=== PATIENT | male | born 1980 | race Caucasian/White ===

== ENCOUNTER 2016-11-28 17:18 | Emergency (ER) | payer MEDICAID, OTHER ==
[~2016-11-28] VITALS: Wt 78.0 kg
[~2016-11-28 17:18] MED LIST: BACTDS PO; CEPH-443 PO; CEPH500C PO; IBUP-1542 PO
[2016-11-28] MEDS ORDERED: SOD CHLORIDE 0.9% 1,000 ML IV STA (20:13)
[2016-11-28] MEDS ORDERED: morphine 4 MG/ML VIAL IV STA (20:13)
[2016-11-28] MEDS ORDERED: ONDANSETRON 4 MG INJ IV STA ×2 (20:13→22:21)
--- NOTE | 2016-11-28 20:24 | ERD ---
ER Documentation Chief Complaint Date/Time DATE: 11/28/16 TIME: 20:16 Chief Complaint ap x2 week HPI 36-year-old otherwise healthy male presents To the emergency department for complaints of nonradiating, right lower quadrant abdominal pain which has gradually worsened over the past 2 weeks. He states he experienced the pain originally along bilateral lower abdomen but notes that it has since focused to the right lower quadrant. He notes associated fever and chills since today. Patient has attempted to treat his symptoms with Advil without relief.He denies nausea, vomiting, diarrhea, chest pain, shortness of breath, dysuria, hematuria. Patient denies any recent travel outside the country. His last bowel movement was earlier today and normal for him he denies any blood in the stool. ROS All systems reviewed and are negative except as per history of present illness. Medications Home Meds Active Scripts Naproxen* (Naprosyn*) 500 Mg Tablet, 500 MG PO BID Y for PAIN AND/OR INFLAMMATION, #30 TAB Prov:JARRED BEE PA-C 11/28/16 Acetaminophen with Codeine (Acetaminophen-Cod #3 Tablet) 1 Each Tablet, 1 TAB PO Q6H Y for PAIN, #20 TAB Prov:JARRED BEE PA-C 11/28/16 Ibuprofen* (Motrin*) 600 Mg Tab, 600 MG PO Q6, #20 TAB Prov:CAROLINE ROSE PA-C 10/10/15 Cephalexin* (Keflex*) 500 Mg Capsule, 500 MG PO QID for 7 Days, CAP Prov:CAROLINE ROSE PA-C 10/10/15 Sulfamethoxazole-Trimethoprim* (Bactrim* DS) 800-160 Mg Tab, 1 TAB PO BID for 7 Days, TAB Prov:ANAIS RAZO PA-C 09/10/15 Cephalexin* (Cephalexin*) 500 Mg Capsule, 500 MG PO Q6 for 10 Days, CAP Prov:ANAIS RAZOC 09/10/15 Allergies Allergies: Coded Allergies: No Known Allergy (Unverified , 09/20/15) PMhx/Soc Medical and Surgical Hx: pt denies Medical Hx, pt denies Surgical Hx History of Surgery: No Anesthesia Reaction: No Hx Neurological Disorder: No Hx Respiratory Disorders: No Hx Cardiac Disorders: No Hx Psychiatric Problems: No Hx Miscellaneous Medical Probl: No Hx Alcohol Use: Yes (socially) Hx Substance Use: No Hx Tobacco Use: No Physical Exam Vitals Vital Signs Date Time Temp Pulse Resp B/P Pulse Ox O2 Delivery O2 Flow Rate FiO2 11/28/16 23:01 98.5 76 18 118/70 98 Room Air 11/28/16 17:27 100.6 97 18 143/79 99 Physical Exam Const: Well-developed, well-nourished, in moderate distress Head: Atraumatic Eyes: Normal Conjunctiva Neck: Full range of motion..~ No meningismus. Resp: Clear to auscultation bilaterally Cardio: Regular rate and rhythm, no murmurs Abd: Soft, Right lower quadrant tenderness to palpation. Positive rebound tenderness. No peritoneal sign. Skin: No petechiae or rashes Back: No midline or flank tenderness Ext: No cyanosis, or edema Neur: Awake and alert Psych: Normal Mood and Affect Result Diagram: 11/28/16203911/28/162039 Results 24 hrs Laboratory Tests Test 11/28/16 20:40 11/28/16 20:45 White Blood Count 7.310^3/ul Red Blood Count 5.0310^6/ul Hemoglobin 15.1g/dl Hematocrit 42.2% Mean Corpuscular Volume 83.9fl Mean Corpuscular Hemoglobin 30.0pg Mean Corpuscular Hemoglobin Concent 35.8g/dl Red Cell Distribution Width 11.7% Platelet Count 34164^3/UL Mean Platelet Volume 9.2fl Neutrophils % 78.2% Lymphocytes % 13.1% Monocytes % 7.8% Eosinophils % 0.1% Basophils % 0.3% Nucleated Red Blood Cells % 0.0/100WBC Neutrophils # (Manual) 5.710^3/ul Lymphocytes # 1.010^3/ul Monocytes # 0.610^3/ul Eosinophils # 0.010^3/ul Basophils # 0.010^3/ul Nucleated Red Blood Cells # 0.010^3/ul Prothrombin Time 12.9Sec Prothrombin Time Ratio 1.0 INR International Normalized Ratio 0.97 Activated Partial Thromboplast Time 29.4Sec Sodium Level 138mmol/L Potassium Level 3.9mmol/L Chloride Level 100mmol/L Carbon Dioxide Level 26mmol/L Anion Gap 16 Blood Urea Nitrogen 12mg/dl Creatinine 0.89mg/dl Glucose Level 98mg/dl Lactic Acid Level 1.1mmol/L Calcium Level 9.7mg/dl Total Bilirubin 1.1mg/dl Direct Bilirubin 0.00mg/dl Indirect Bilirubin 1.1mg/dl Aspartate Amino Transf (AST/SGOT) 24IU/L Alanine Aminotransferase (ALT/SGPT) 37IU/L Alkaline Phosphatase 60IU/L Total Protein 8.9g/dl Albumin 4.9g/dl Globulin 4.00g/dl Albumin/Globulin Ratio 1.22 Lipase 62U/L Urine Color YELLOW Urine Clarity CLEAR Urine pH 5.0 Urine Specific [place] 1.018 Urine Ketones NEGATIVEmg/dL Urine Nitrite NEGATIVEmg/dL Urine Bilirubin NEGATIVEmg/dL Urine Urobilinogen NEGATIVEmg/dL Urine Leukocyte Esterase NEGATIVELeu/ul Urine Microscopic RBC 5/HPF Urine Microscopic WBC 0/HPF Urine Hemoglobin 2+mg/dL Urine Glucose NEGATIVEmg/dL Urine Total Protein NEGATIVEmg/dl Current Medications Medications (Trade) Dose Ordered Sig/Elizabeth Route PRN Reason Start Time Stop Time Status Last Admin Dose Admin Sodium Chloride (NS) 1,000 ml @ 1,000 mls/hr Q1H STAT IV 11/28/16 20:13 11/28/16 21:12 DC 11/28/16 20:30 Morphine Sulfate (morphine) 4 mg ONCE STAT IV 11/28/16 20:13 11/28/16 20:15 DC 11/28/16 20:30 Ondansetron HCl (Zofran Inj) 4 mg ONCE STAT IV 11/28/16 20:13 11/28/16 20:15 DC 11/28/16 20:29 Acetaminophen (Tylenol Tab) 650 mg ONCE ONCE PO 11/28/16 20:30 11/28/16 20:31 DC 11/28/16 20:34 IV Flush 10 ml 10 ml STK-MED ONCE .ROUTE 11/28/16 21:13 11/28/16 21:14 DC 11/28/16 21:48 Sodium Chloride (NS) 100 ml @ ud STK-MED ONCE .ROUTE 11/28/16 21:13 11/28/16 21:14 DC 11/28/16 21:49 Iohexol (Omnipaque 300mg/ ml) 150 ml STK-MED ONCE .ROUTE 11/28/16 21:13 11/28/16 21:14 DC 11/28/16 21:49 Ketorolac Tromethamine (Toradol) 30 mg ONCE STAT IV 11/28/16 22:21 11/28/16 22:22 DC 11/28/16 22:34 Ondansetron HCl (Zofran Inj) 4 mg ONCE STAT IV 11/28/16 22:21 11/28/16 22:22 DC 11/28/16 22:34 Procedures/MDM PROCEDURE: CT Abdomen and Pelvis with contrast. CLINICAL INDICATION: Right lower abdominal pain. TECHNIQUE: CT scan of the abdomen and pelvis with contrast was performed on a multi-detector high-resolution CT scanner. The patient was scanned following the uncomplicated intravenous administration of 90 cc of Omnipaque 300. Coronal and sagittal reformatted images were obtained from the axial source images. One or more of the following dose reduction techniques were used: Automated exposure control, adjustment of the mA and/or kV according to patient size, use of iterative reconstruction technique. Images were reviewed on a high -resolution PACS workstation. The total exam CTDI equals 10.57 mGy and the total exam DLP equals 674.74 mGy-cm. COMPARISON: None available. FINDINGS: CT abdomen: Minimal bilateral lower lobe dependent atelectatic changes are present. Otherwise, the lung bases are clear. The heart size is normal, without pericardial thickening or effusion. There is mild distension of the distal esophagus which is gas filled. The liver is normal in size and density without focal mass or intrahepatic biliary dilatation. The spleen is borderline prominent measuring 13.4 cm. The stomach is partially collapsed, but is grossly unremarkable. The pancreas as visualized is normal. The gallbladder is unremarkable. The biliary tree is unremarkable without evidence for biliary dilatation. The adrenal glands are symmetric and normal. The kidneys are unremarkable. No renal calculus or obstructive uropathy or mass lesion is seen. The aorta is of normal caliber. There is no retroperitoneal lymphadenopathy. The francisco hepatis region is clear. The small bowel and mesentery, as visualized , are unremarkable. CT pelvis: The small bowel loops situated within the pelvis are unremarkable. The pelvic organs are normal. The pelvic sidewalls and inguinal regions are clear. The sigmoid colon and rectum are unremarkable. The appendix is not seen. No right lower quadrant inflammatory changes are seen to suggest appendicitis. No mass, lymphadenopathy, or free fluid is seen. The bladder is normal. There is a small fat-containing right inguinal hernia. The surrounding osseous structures are unremarkable. No osteolytic or osteoblastic lesion is detected. IMPRESSION: 1. No mass, lymphadenopathy, or focal acute inflammatory process is identified. 2. Borderline prominent splenic size. RPTAT: QQ .Arnoldo Howe MD, Date Time Electronically viewed and signed by .Arnoldo Howe MD, MD on 11/28/2016 22:04 .A/ CC: JARRED BEE PA-C This is an otherwise healthy 36-year-old male who presents emergency department for gradually worsening abdominal pain with associated fever and chills. Upon arrival, patient febrile at 100.6. Otherwise vital signs within normal limits. Physical exam with evidence of right lower quadrant tenderness to palpation. CBC showed no evidence of systemic infection or severe anemia. CMP showed no evidence of electrolyte abnormalities, severe acidosis, alkalosis , renal failure, or liver disease. Lipase showed no evidence of acute pancreatitis. UA showed no evidence of acute infection. Patient exhibited 2+ hematuria. His fever was well controlled with [address] with evidence of borderline prominent spleen. On physical exam, patient did not exhibit splenomegaly and was nontender to the left upper quadrant. There are no other acute findings. History and physical exam consistent with abdominal pain of unknown etiology. Differential diagnosis includes but not limited to acute appendicitis, abdominal aortic aneurysm, small bowel obstruction, inguinal hernia, testicular torsion, gastroenteritis, colitis, prostatitis, or renal calculi. Labs and imaging however did not demonstrate any significant acute process. Patient received a bolus of fluids as well as pain medication while in the emergency department and reported improvement of symptoms. Based on patient's history of present illness and physical examination the decision was made to discharge. The patient was re-evaluated after ED treatment and stabilizing measures, and symptoms have improved. There is no evidence of life threatening injuries or illnesses at this time. On re-examination, patient resting in no distress, stable vital signs, reports feeling better and safe for discharge with outpatient follow up with PMD in 1-2 days. Patient given return precautions. Community clinic resources were provided. Patient expressed understanding of and agreement with plan. Departure Diagnosis: Primary Impression: Abdominal pain Abdominal location: generalized Qualified Code: R10.84 - Generalized abdominal pain Additional Impression: Fever Fever type: unspecified Qualified Code: R50.9 - Fever, unspecified fever cause JARRED BEE PA-C Nov 28, 2016 20:24
[2016-11-28] MEDS ORDERED: ACETAMINOPHEN 325 MG TAB PO ONE (20:30)
[2016-11-28 20:58] LABS: BASOPHILS % 0.3 % (0.0-2.0); EOSINOPHILS % 0.1 % (0.0-7.0); HEMATOCRIT 42.2 % (42.0-52.0); HEMOGLOBIN 15.1 g/dl (14.0-18.0); LYMPHOCYTES % 13.1 % (15.0-51.0); MEAN CORPUSCULAR HGB CONC 35.8 g/dl (32.0-37.0); MEAN CORPUSCULAR VOLUME 83.9 fl (82.0-101.0); MEAN PLATELET VOLUME 9.2 fl (7.4-10.4); MONOCYTE # 0.6 10^3/ul (0.3-0.9); MONOCYTES % 7.8 % (0.0-11.0); NEUTROPHILS % 78.2 % (39.0-77.0); PLATELET COUNT 237 10^3/UL (140-415); RED BLOOD COUNT 5.03 10^6/ul (4.70-6.10); RED CELL DISTRIBUTION WIDTH 11.7 % (11.5-14.5); WHITE BLOOD COUNT 7.3 10^3/ul (4.8-10.8)
[2016-11-28] MEDS ORDERED: SOD CHLORIDE 0.9% 100 ML ONE (21:13)
[2016-11-28] MEDS ORDERED: IOHEXOL 300MG/ML 150 ML BTL ONE (21:13)
[2016-11-28 21:18] LABS: INR 0.97; PROTIME 12.9 Sec (12.2-14.2)
[2016-11-28 21:19] LABS: PARTIAL THROMBOPLASTIN TIME 29.4 Sec (25.0-35.0)
[2016-11-28 21:22] LABS: ADD UMIC YES; UR ASCORBIC ACID NEGATIVE (NEGATIVE); UR BILIRUBIN (Dip) NEGATIVE (NEGATIVE); UR BLOOD (Dip) 2+ mg/dL (NEGATIVE); UR CLARITY CLEAR (CLEAR); UR COLOR YELLOW (YELLOW); UR GLUCOSE (Dip) NEGATIVE (NEGATIVE); UR KETONES (Dip) NEGATIVE (NEGATIVE); UR LEUKOCYTE ESTERASE (Dip) NEGATIVE Leu/ul (NEGATIVE); UR NITRITE (Dip) NEGATIVE (NEGATIVE); UR RBC 5 /HPF (0-5); UR SPECIFIC GRAVITY (Dip) 1.018 (1.003-1.030); UR TOTAL PROTEIN (Dip) NEGATIVE (NEGATIVE); UR UROBILINOGEN (Dip) NEGATIVE (NEGATIVE)
[2016-11-28 21:23] LABS: ALBUMIN 4.9 g/dl (3.3-4.9); ALBUMIN/GLOBULIN RATIO 1.22; BILIRUBIN,INDIRECT 1.1 mg/dl (0-1.1); BILIRUBIN,TOTAL 1.1 mg/dl (0.2-1.3); CALCIUM 9.7 mg/dl (8.4-10.2); CREATININE 0.89 mg/dl (0.61-1.24); POTASSIUM 3.9 mmol/L (3.5-5.1); TOTAL PROTEIN 8.9 g/dl (6.1-8.1)
--- NOTE | 2016-11-28 22:05 | RADRPT ---
PROCEDURE: CT Abdomen and Pelvis with contrast. CLINICAL INDICATION: Right lower abdominal pain. TECHNIQUE: CT scan of the abdomen and pelvis with contrast was performed on a multi-detector high- resolution CT scanner. The patient was scanned following the uncomplicated intravenous administrati on of 90 cc of Omnipaque 300. Coronal and sagittal reformatted images were obtained from the axial source images. One or more of the following dose reduction techniques were used: Automated exposure control, adjustment of the mA and/or kV according to patient size, use of iterative reconstruction technique. Images were reviewed on a high-resolution PACS workstation. The total exam CTDI equals 10.57 mGy and the total exam DLP equals 674.74 mGy-cm. COMPARISON: None available. FINDINGS: CT abdomen: Minimal bilateral lower lobe dependent atelectatic changes are present. Otherwise, the lung bases are clear. The heart size is normal, without pericardial thickening or effusion. There is mild dis tension of the distal esophagus which is gas filled. The liver is normal in size and density without focal mass or intrahepatic biliary dilatation. The spleen is borderline prominent measuring 13.4 cm. The stomach is partially collapsed, but is grossly unremarkable. The pancreas as visualized is normal. The gallbladder is unremarkable. The biliary tree is unremarkable without evidence for biliary dilatation. The adrenal glands are symmetric and normal. The kidneys are unremarkable. No renal calculus or obstructive uropathy or mass lesion is seen. The aorta is of normal caliber. There is no retroperitoneal lymphadenopathy. The francisco hepatis re gion is clear. The small bowel and mesentery, as visualized, are unremarkable. CT pelvis: The small bowel loops situated within the pelvis are unremarkable. The pelvic organs are normal. T he pelvic sidewalls and inguinal regions are clear. The sigmoid colon and rectum are unremarkable. The appendix is not seen. No right lower quadrant inflammatory changes are seen to suggest appendici tis. No mass, lymphadenopathy, or free fluid is seen. The bladder is normal. There is a small fat-c ontaining right inguinal hernia. The surrounding osseous structures are unremarkable. No osteolytic or osteoblastic lesion is detect ed. IMPRESSION: 1. No mass, lymphadenopathy, or focal acute inflammatory process is identified. 2. Borderline prominent splenic size. RPTAT: QQ .Arnoldo Howe MD, MD Date Time Electronically viewed and signed by .Arnoldo Howe MD, on 11/28/2016 22:04 .A/
[2016-11-28] MEDS ORDERED: KETOROLAC 30 MG INJ IV STA (22:21)
[2016-11-28] MEDS ORDERED: ACET1TAB40 PO (22:29)
[2016-11-28] MEDS ORDERED: NAPR-260 PO (22:29)
[2016-11-28 23:01] VITALS: BP 118/70; PULSE 76; RESP 18; TEMP 98.5
== END 2016-11-28 23:03 | disposition home or self-care (01) ==
LOC: FTE 17:18
DX: R10.84 Generalized abdominal pain (principal); R50.9 Fever, unspecified
CPT/HCPCS: 36415; 74177; 80053; 81001; 83605; 83690; 85025; 85610; 85730; 96374; 96375; 96376; J1885; J2270; J2405; J7030; Q9967; Z7502; Z7610

== ENCOUNTER 2018-09-18 19:48 | Inpatient (IN) | payer MEDICAID ==
[~2018-09-18] VITALS: Ht 170.2 cm; Wt 88.0 kg
[~2018-09-18 19:48] MED LIST changes: +ACET1TAB40 PO; +NAPR-985 PO
[2018-09-18 19:57] VITALS: Ht 170.2 cm; Wt 88.0 kg
[2018-09-18] MEDS ORDERED: CEFEPIME 2GM/50 ML (PMX) 50 ML IVPB STA (20:17)
[2018-09-18] MEDS ORDERED: SODIUM CHLORIDE 0.9% 1L BAG IV* STA (20:17)
[2018-09-18] MEDS ORDERED: ACETAMINOPHEN 325 MG TAB PO STA (20:17)
[2018-09-18] MEDS ORDERED: ASPIRIN 325 MG TAB PO ONE (20:30)
[2018-09-18] MEDS ORDERED: VANCOMYCIN 1 GM (PMX) 250 ML IVPB ONE (20:30)
[2018-09-18] MEDS ORDERED: SOD CHLORIDE 0.9% 100 ML ONE (21:35)
[2018-09-18] MEDS ORDERED: IOHEXOL 300MG/ML 150 ML BTL ONE (21:35)
--- NOTE | 2018-09-18 21:54 | ERD ---
ER Documentation Chief Complaint Chief Complaint low back pain x 1week, no trauma, feels tired HPI 38-year-old male with no significant prior medical history presents to the ED complaining of fever and low back pain. He was in his usual state of health until 3 weeks ago when he developed nonspecific URI and flu symptoms with fevers that lasted approximately a week and then resolved. One week ago again began to have fevers and body aches with crampy, nonradiating low back pain. Pain is moderate, crampy, nonradiating and exacerbated by movement. No relieving factors.No abdominal pain, nausea, vomiting, diarrhea or constipation. Denies cough or shortness of breath. No chest pain or palpitations. No dysuria, polyuria, hematuria or flank pain. ROS All systems reviewed and are negative except as per history of present illness. Medications Home Meds Active Scripts [Medical Note] No Conflict Check Mr.Christian Conway was hospitalized due to his medical illness. Please excuse him attending work from 09/18/2018 to 09/22/2018. Prov:GAMALIEL LOGAN NP 09/22/18 Amoxicillin/Potassium Clav (Amox-Clav 875-125 mg Tablet) 875-125 mg Tab, 1 TAB PO BID for 10 Days, #20 TAB Prov:GAMLAIEL LOGAN NP 09/22/18 Azithromycin* (Azithromycin*) 500 Mg Tablet, 500 MG PO DAILY for 3 Days, #3 TAB Prov:GAMALIEL LOGAN NP 09/22/18 Discontinued Scripts Ibuprofen* (Motrin*) 600 Mg Tab, 600 MG PO Q6, #20 TAB Prov:CAROLINE ROSE PA-C 10/10/15 Naproxen* (Naprosyn*) 500 Mg Tablet, 500 MG PO BID PRN for PAIN AND/OR INFLAMMATION, #30 TAB Prov:JARRED BEE PA-C 11/28/16 Acetaminophen with Codeine (Acetaminophen-Cod #3 Tablet) 1 Each Tablet, 1 TAB PO Q6H PRN for PAIN, #20 TAB Prov:JARRED BEEC 11/28/16 Cephalexin* (Keflex*) 500 Mg Capsule, 500 MG PO QID for 7 Days, CAP Prov:CAROLINE ROSEC 10/10/15 Sulfamethoxazole-Trimethoprim* (Bactrim* DS) 800-160 Mg Tab, 1 TAB PO BID for 7 Days, TAB Prov:ANAIS RAZO PA-C 09/10/15 Cephalexin* (Cephalexin*) 500 Mg Capsule, 500 MG PO Q6 for 10 Days, CAP Prov:ANAIS RAZO PA-C 09/10/15 Allergies Allergies: Coded Allergies: No Known Allergy (Unverified , 09/18/18) PMhx/Soc Reviewed History of Surgery: No Anesthesia Reaction: No Hx Neurological Disorder: No Hx Respiratory Disorders: No Hx Cardiac Disorders: No Hx Psychiatric Problems: No Hx Miscellaneous Medical Probl: No Hx Alcohol Use: Yes (socially) Hx Substance Use: No Hx Tobacco Use: No Smoking Status: Never smoker FmHx No diabetes, coronary artery disease or stroke Physical Exam Vitals Temp: 102.2. Pulse: 105. Respirations: 18. Pressure: 133/80. O2 saturation 99% on room air. Physical Exam Const: Alert, moderate distress Head: Atraumatic Eyes: Pupils equal reactive to light, extraocular movements are intact. No periorbital swelling. Pharynx is clear without erythema or exudate. Normal Conjunctiva ENT: Normal External Ears, Nose and Mouth. Neck: Full range of motion. Supple, nontender. No meningismus. No lymphadenopathy. Resp: Breath sounds are equal and clear to auscultation bilaterally Cardio: Tachycardia. Regular rate and rhythm, no murmurs Abd: Soft, mild, generalized tenderness which localizes to the upper abdomen but no rebound or guarding. Non distended. Normal bowel sounds Skin: No petechiae or rashes Back: No midline bony tenderness to palpation or percussion. Negative straight leg raise and cross leg raise. Dorsiflexion of the great toe is normal bilaterally. No pTreatment araspinal muscle spasm. No CVA tenderness. Ext: No cyanosis, or edema Neur: Awake and alert. No focal deficit. Motor and sensory equal bilaterally. Psych: Normal Mood and Affect Result Diagram: 09/22/1860409/22/18604 Results 24 hrs Laboratory Tests Test 09/18/18 20:16 09/18/18 20:20 POC Venous Lactate 1.2 mmol/L White Blood Count 8.6 10^3/ul Red Blood Count 4.91 10^6/ul Hemoglobin 14.2 g/dl Hematocrit 41.5 % Mean Corpuscular Volume 84.5 fl Mean Corpuscular Hemoglobin 28.9 pg Mean Corpuscular Hemoglobin Concent 34.2 g/dl Red Cell Distribution Width 11.7 % Platelet Count 256 10^3/UL Mean Platelet Volume 9.2 fl Immature Granulocytes % 0.400 % Neutrophils % 69.5 % Lymphocytes % 19.9 % Monocytes % 9.3 % Eosinophils % 0.7 % Basophils % 0.2 % Nucleated Red Blood Cells % 0.0 /100WBC Immature Granulocytes # 0.030 10^3/ul Neutrophils # 6.0 10^3/ul Lymphocytes # 1.7 10^3/ul Monocytes # 0.8 10^3/ul Eosinophils # 0.1 10^3/ul Basophils # 0.0 10^3/ul Nucleated Red Blood Cells # 0.0 10^3/ul Erythrocyte Sedimentation Rate 25 mm/Hr Prothrombin Time 13.6 Sec Prothrombin Time Ratio 1.1 INR International Normalized Ratio 1.03 Activated Partial Thromboplast Time 32.0 Sec Urine Color STRAW Urine Clarity CLEAR Urine pH 7.0 Urine Specific [place] 1.006 Urine Ketones NEGATIVE mg/dL Urine Nitrite NEGATIVE mg/dL Urine Bilirubin NEGATIVE mg/dL Urine Urobilinogen NEGATIVE mg/dL Urine Leukocyte Esterase NEGATIVE Hemanth/ul Urine Microscopic RBC 7 /HPF Urine Microscopic WBC 0 /HPF Urine Hemoglobin 2+ mg/dL Urine Glucose NEGATIVE mg/dL Urine Total Protein NEGATIVE mg/dl Sodium Level 139 mmol/L Potassium Level 4.0 mmol/L Chloride Level 101 mmol/L Carbon Dioxide Level 28 mmol/L Anion Gap 10 Blood Urea Nitrogen 12 mg/dl Creatinine 0.95 mg/dl Est Glomerular Filtrat Rate mL/min > 60 mL/min Glucose Level 99 mg/dl Calcium Level 9.4 mg/dl Total Bilirubin 1.2 mg/dl Direct Bilirubin 0.00 mg/dl Indirect Bilirubin 1.2 mg/dl Aspartate Amino Transf (AST/SGOT) 20 IU/L Alanine Aminotransferase (ALT/SGPT) 15 IU/L Alkaline Phosphatase 65 IU/L Creatine Kinase 81 IU/L Creatine Kinase Index 0.3 Creatinine Kinase MB (Mass) < 0.22 ng/ml Troponin I ng/ml C-Reactive Protein 4.1 mg/dl Total Protein 8.8 g/dl Albumin 4.7 g/dl Globulin 4.10 g/dl Albumin/Globulin Ratio 1.14 Current Medications Medications Dose Sig/Elizabeth Start Time Status Last (Trade) Ordered Route PRN Stop Time Admin Dose Reason Admin Sodium 2,640 ml BOLUS OVER 2 09/18/18 DC 09/18/18 Chloride HOURS STAT 20:17 20:28 (NS) IV* 09/18/18 20:18 650 mg ONCE STAT 09/18/18 DC 09/18/18 Acetaminophen PO 20:17 20:28 (Tylenol 09/18/18 20:18 Tab) Cefepime HCl 50 ml @ ONCE STAT 09/18/18 DC 09/18/18 100 mls/hr IVPB 20:17 20:29 09/18/18 20:46 Vancomycin 250 ml @ ONCE ONCE 09/18/18 DC 09/18/18 HCl 125 mls/hr IVPB 20:30 20:59 09/18/18 23:19 Aspirin 325 mg ONCE ONCE 09/18/18 DC 09/18/18 (Aspirin) PO 20:30 20:45 09/18/18 20:31 IV Flush 10 ml STK-MED 09/18/18 DC 09/18/18 (NS 10 ml) ONCE .ROUTE 21:35 22:09 09/18/18 21:36 Sodium 100 ml @ ud STK-MED 09/18/18 DC 09/18/18 Chloride ONCE .ROUTE 21:35 22:10 09/18/18 21:36 Iohexol 150 ml STK-MED 09/18/18 DC 09/18/18 (Omnipaque ONCE .ROUTE 21:35 22:10 300mg/ ml) 09/18/18 21:36 Procedures/MDM DOCUMENTS REVIEWED: ED nurse, prior records EKG: Time: 20:14. Sinus tachycardia. Ventricular rate 102. Normal AL and QRS. Q waves in leads II, III and aVF. ST segment elevations in aVL and V2. No ST segment or AL depressions. No ectopy. My Interpretation EKG: Time: 20:38. Sinus rhythm. Ventricular rate 89. Normal AL and QRS. Q waves in the inferior leads with ST segment elevations in aVL and V2 unchanged. No ectopy. My Interpretation IMAGING: Chest AP portable. Cardiac silhouette is normal. The costophrenic angles are clear. No effusions or infiltrates. No abnormalities of the bony thorax. My interpretation. PROCEDURE: CT Abdomen and Pelvis With Intravenous Contrast CLINICAL INDICATION: Fever. Hematuria. TECHNIQUE: Axial computed tomography images of the abdomen and pelvis with intravenous contrast. Sagittal and coronal reformatted images were created and reviewed. CTDIvol (mGy) = 01/21; total DLP (mGy-cm) = 716.48. This CT exam was performed using one or more of the following dose reduction techniques: automated exposure control, adjustment of the mA and/or kV according to patient size, and/or use of iterative reconstruction technique. DICOM images are available. CONTRAST: 90 mL of Omnipaque-300 was administered intravenously. COMPARISON: 11/28/2016 FINDINGS: LUNG BASES: Right lower lobe infiltrate, highly suggestive of pneumonia. ABDOMEN: LIVER: Unremarkable. No mass. GALLBLADDER AND BILE DUCTS: The gallbladder is contracted. No calcified gallstones are demonstrated. No biliary dilatation. PANCREAS: Unremarkable. No mass. No ductal dilation. SPLEEN: Unremarkable. No splenomegaly. ADRENALS: Unremarkable. No mass. KIDNEYS AND URETERS: The kidneys are morphologically normal. No nephrolithiasis. No hydronephrosis. No obstructive uropathy. STOMACH AND BOWEL: Unremarkable. No obstruction. No mucosal thickening. PELVIS: APPENDIX: No findings to suggest acute appendicitis. BLADDER: Unremarkable. No mass. REPRODUCTIVE: Unremarkable as visualized. ABDOMEN and PELVIS: INTRAPERITONEAL SPACE: Unremarkable. No free air. No significant fluid collection. BONES/JOINTS: No acute fracture. No dislocation. SOFT TISSUES: Unremarkable. VASCULATURE: Unremarkable. LYMPH NODES: Unremarkable. No enlarged lymph nodes. IMPRESSION: 1. Right lower lobe infiltrate, highly suggestive of pneumonia. 2. No acute abnormality demonstrated in the abdomen and pelvis. RPTAT: [facility] Edward Ramos Physician Date Time Electronically viewed and signed by Edward Ramos Physician on 09/18/2018 22:31 [facility] [place] [employer]-year-old male with no significant prior medical history presents to the ED complaining of fever and low back pain. CBC to evaluate for leukocytosis, anemia and thrombocytopenia is unremarkable. Chemistry is negative for hyperglycemia, electrolyte abnormalities or renal insufficiency. Urinalysis significant for mild microscopic hematuria but no pyuria. Chest x-ray negative for infiltrate or effusion. EKG x2 remarkable for ST-T wave changes as described above but not consistent STEMI or acute ischemia. Troponin is negative. No chest pain or acute coronary syndrome. CT scan of the abdomen pelvis with intravenous contrast significant for findings consistent with right lower lobe pneumonia but no acute intra-abdominal process including but not limited to appendicitis, diverticulitis, bowel obstruction, abdominal aortic aneurysm or bowel obstruction. Patient presents with multiple criteria for systemic inflammatory response syndrome. [id number] lactate is 1.2 mmol/L. Fever treated with acetaminophen. Normal saline 30 cc/kg fluid bolus and broad-spectrum antibiotics after cultures. No elevated lactate greater than 2, hypotension or criteria for severe sepsis, septic shock or indication for bundle therapy. Admit to telemetry for infectious source control, cardiology consultation, further evaluation and management. Critical Care Time: 35 minutes Treatments/Evaluations: Close monitoring and treatment of unstable vital signs, cardiorespiratory, and neurologic status, while maintaining tight balance of fluid, respiratory, and cardiac interventions. This time includes discussing the case with the patient and the patient's family. This time does not include all procedures stated elsewhere in this record. This time also includes reviewing old records, labs and radiological studies. This time includes examining and re- examining the patient. Additionally, this time also includes arranging care with admitting and consulting physicians. CALLS/CONSULTS: Time: 20:45, Dr. Ibarra. Recommends admission for further evaluation. PATIENT CARE TRANSITIONED: Time: 23:11, Dr. Vargas. Counseled patient regarding diagnosis, diagnostic results and plan for admission. Departure Diagnosis: Primary Impression: Sepsis Sepsis type: sepsis due to unspecified organism Qualified Codes: A41.9 - Sepsis, unspecified organism Additional Impressions: Pneumonia Pneumonia type: due to unspecified organism Laterality: right Lung location: lower lobe of lung Qualified Codes: J18.1 - Lobar pneumonia, unspecified organism SIRS (systemic inflammatory response syndrome) Abnormal ECG Condition: Serious KENIA ANAYA MD Sep 18, 2018 21:54
--- NOTE | 2018-09-18 23:15 | HP ---
Date/Time of Note Date/Time of Note DATE: 09/18/18 TIME: 23:14 Assessment/Plan VTE Prophylaxis SCD applied (from Nsg): Yes Pharmacological prophylaxis: NA/contraindicated Pharm contraindication: low risk/ambulating Lines/Catheters IV Catheter Type (from Nrsg): Saline Lock Assessment/Plan Hospital Course This is a 38-year-old male being admitted to the telemetry floor for: #1 sepsis: Secondary to community-acquired pneumonia. Patient received vancomycin and cefepime in the emergency department. We will start the patient on Zosyn 3.375 every 6 hours. Will await culture results. Lactic acid within n ormal values. Tylenol for fevers. #2 community acquired pneumonia: Zosyn, PRN nebs as needed #3 abnormal EKG:EKG:Sinus rhythm. Ventricular rate 89. Normal PA and QRS. Q waves in the inferior leads with ST segment elevations in aVL and V2 unchanged. The EKG also read acute SC. The overnight helicopter dispatcher was consulted as per the ED physician. This was not thought to be a true SC. Patient did not complain of chest pain. His initial troponin was negative. Will trend cardiac enzymes. We will monitor on telemetry. Will check an echocardiogram. Will consult cardiology in the a.m. #4 obesity: We will check hemoglobin A 1C, lipid panel, TSH #5 DVT GI prophylaxis: SCDs, no GI prophylaxis indicated Further treatment strategy will be implemented as per the clinical course. Result Diagram: 09/18/18201909/18/182019 Results 24hrs Laboratory Tests Test 09/18/18 20:16 09/18/18 20:20 POC Venous Lactate 1.2 White Blood Count 8.6 Red Blood Count 4.91 Hemoglobin 14.2 Hematocrit 41.5 L Mean Corpuscular Volume 84.5 Mean Corpuscular Hemoglobin 28.9 L Mean Corpuscular Hemoglobin Concent 34.2 Red Cell Distribution Width 11.7 Platelet Count 256 Mean Platelet Volume 9.2 Immature Granulocytes % 0.400 Neutrophils % 69.5 Lymphocytes % 19.9 Monocytes % 9.3 Eosinophils % 0.7 Basophils % 0.2 Nucleated Red Blood Cells % 0.0 Immature Granulocytes # 0.030 Neutrophils # 6.0 Lymphocytes # 1.7 Monocytes # 0.8 Eosinophils # 0.1 Basophils # 0.0 Nucleated Red Blood Cells # 0.0 Erythrocyte Sedimentation Rate 25 H Prothrombin Time 13.6 Prothrombin Time Ratio 1.1 INR International Normalized Ratio 1.03 Activated Partial Thromboplast Time 32.0 Urine Color STRAW Urine Clarity CLEAR Urine pH 7.0 Urine Specific [place] 1.006 Urine Ketones NEGATIVE Urine Nitrite NEGATIVE Urine Bilirubin NEGATIVE Urine Urobilinogen NEGATIVE Urine Leukocyte Esterase NEGATIVE Urine Microscopic RBC 7 H Urine Microscopic WBC 0 Urine Hemoglobin 2+ H Urine Glucose NEGATIVE Urine Total Protein NEGATIVE Sodium Level 139 Potassium Level 4.0 Chloride Level 101 Carbon Dioxide Level 28 Anion Gap 10 Blood Urea Nitrogen 12 Creatinine 0.95 Est Glomerular Filtrat Rate mL/min > 60 Glucose Level 99 Calcium Level 9.4 Total Bilirubin 1.2 Direct Bilirubin 0.00 Indirect Bilirubin 1.2 H Aspartate Amino Transf (AST/SGOT) 20 Alanine Aminotransferase (ALT/SGPT) 15 Alkaline Phosphatase 65 Creatine Kinase 81 Creatine Kinase Index 0.3 Creatinine Kinase MB (Mass) < 0.22 Troponin I C-Reactive Protein 4.1 H Total Protein 8.8 H Albumin 4.7 Globulin 4.10 H Albumin/Globulin Ratio 1.14 HPI/ROS Admit Date/Time Admit Date/Time Hx of Present Illness Chief complaint: Fever and low back pain This is a 38-year-old male with no past medical history who presented to the emergency department with complaints of fever and low back pain. Patient r eports that approximately 3 weeks ago he had a cold that improved. And then on Sunday he started experiencing low back pain and body aches. He also had a fever. He developed a cough yesterday morning productive of phlegm. He denies any chest pain or nausea vomiting. Denies any shortness of breath. Patient also reports lower back pain. He had a CT of the abdomen pelvis all performed that was consistent with a left lower lobe pneumonia, but did not show any other abnormalities. Allergies: NKDA Medications: None ROS Const: As per HPI Eyes : No pain discharge or redness or change in visual acuity ENT: No pain, sore throat, congestion, congestion, dysphagia or discharge Respiratory: As per HPI Cardiovascular: No chest pain, palpitation, PND, or edema GI : no change in appetite, abdominal pain, nausea, vomiting, diarrhea, constipation, or change in the color his stool Genitourinary: No dysuria, hematuria, flank pain , discharge or CVA tenderness Musculoskeletal: As per HPI Skin: No rash, bruising or hives Neuro: No headache, dizziness, syncope, seizure, focal weakness Endocrine: No polyuria, polydipsia, temperature intolerance Psych: No hallucination, depression, anxiety or suicidal ideation PMH/Family/Social Past Medical History Medical History: no pertinent history Medications Current Medications IV Flush (NS 3 ml) 3 ml PER PROTOCOL IV ; Start 09/18/18 at 23:30 Ondansetron HCl (Zofran Inj) 4 mg Q6H PRN IV NAUSEA/VOMITING; Start 09/18/18 at 23:30 Acetaminophen (Tylenol Tab) 650 mg Q6H PRN PO .PAIN 1-3 OR TEMP; Start 09/18/18 at 23:30 Acetaminophen/ Hydrocodone Bitart (Ward (5/325)) 1 tab Q6H PRN PO .PAIN 4-6; Start 09/18/18 at 23:30 Docusate Sodium (Colace) 100 mg Q12H PRN PO .CONSTIPATION; Start 09/18/18 at 23:30 Bisacodyl (Dulcolax) 5 mg DAILY PRN PO .CONSTIPATION; Start 09/18/18 at 23:30 Vancomycin HCl (Vanco Iv Per Pharmacy) VANCOMYCIN PER PHARMACY PER PROTOCOL XX ; Start 09/18/18 at 23:30; Status UNV Piperacillin Sod/ Tazobactam Sod 100 ml @ 200 mls/hr Q6 IVPB ; Start 09/19/18 at 00:00 Coded Allergies: No Known Allergy (Unverified , 09/18/18) Past Surgical History Past Surgical Hx: no surgical history Family History Significant Family History: no pertinent family hx Social History Alcohol Use: occasionally Smoking Status: Never smoker Drug Use: none Exam/Review of Systems Vital Signs Vitals Vital Signs Date Temp Pulse Resp B/P (MAP) Pulse Ox O2 O2 Flow FiO2 Time Delivery Rate 09/18/18 98.9 96 20 130/81 100 Room Air 21:30 (97) Exam Exam General: Patient is currently lying in bed, he does appear ill HEENT: Atraumatic, normocephalic. The pupils are equal, round and reactive. Extraocular motor are intact Neck: Supple with full range of motion. No rigidity or meningismus Chest: Nontender Lungs: Crackles at the left lower lung base Heart: Normal S1-S2, Regular rhythm and rate. No murmur, S3, or S4 Abdomen: Soft , nontender, nondistended , bowel sounds are present. No guarding no rebound tenderness , No masses or organomegaly. No costovertebral temporal angle mass Extremities: Normal to inspection, no edema no cyanosis Skin: Diaphoretic Musculoskeletal: Tenderness to palpation over the lumbar spine and paraspinal muscles Neurologic: Normal mental status, speech normal, cranial nerves II through XII are intact, motor and sensory are intact, no focal weakness Additional Comments EKG: Sinus rhythm. Ventricular rate 89. Normal PA and QRS. Q waves in the inferior leads with ST segment elevations in aVL and V2 PROCEDURE: CT Abdomen and Pelvis With Intravenous Contrast CLINICAL INDICATION: Fever. Hematuria. TECHNIQUE: Axial computed tomography images of the abdomen and pelvis with intravenous contrast. Sagittal and coronal reformatted images were created and reviewed. CTDIvol (mGy) = 01/21; total DLP (mGy-cm) = 716.48. This CT exam was performed using one or more of the following dose reduction techniques: automated exposure control, adjustment of the mA and/or kV according to patient size, and/or use of iterative reconstruction technique. DICOM images are available. CONTRAST: 90 mL of Omnipaque-300 was administered intravenously. COMPARISON: 11/28/2016 FINDINGS: LUNG BASES: Right lower lobe infiltrate, highly suggestive of pneumonia. ABDOMEN: LIVER: Unremarkable. No mass. GALLBLADDER AND BILE DUCTS: The gallbladder is contracted. No calcified gallstones are demonstrated. No biliary dilatation. PANCREAS: Unremarkable. No mass. No ductal dilation. SPLEEN: Unremarkable. No splenomegaly. ADRENALS: Unremarkable. No mass. KIDNEYS AND URETERS: The kidneys are morphologically normal. No nephrolithiasis. No hydronephrosis. No obstructive uropathy. STOMACH AND BOWEL: Unremarkable. No obstruction. No mucosal thickening. PELVIS: APPENDIX: No findings to suggest acute appendicitis. BLADDER: Unremarkable. No mass. REPRODUCTIVE: Unremarkable as visualized. ABDOMEN and PELVIS: INTRAPERITONEAL SPACE: Unremarkable. No free air. No significant fluid collection. BONES/JOINTS: No acute fracture. No dislocation. SOFT TISSUES: Unremarkable. VASCULATURE: Unremarkable. LYMPH NODES: Unremarkable. No enlarged lymph nodes. IMPRESSION: 1. Right lower lobe infiltrate, highly suggestive of pneumonia. 2. No acute abnormality demonstrated in the abdomen and pelvis. RPTAT: [facility] [place] Edward Ramos Physician Supervisor [employer] Date Time Electronically viewed and signed by Edward Ramos Physician Supervisor [employer] on 09/18/2018 22:31 RmC/ CC: KENIA ANAYA MD [id number] PROCEDURE: XR Chest, 1 View CLINICAL INDICATION: Sepsis. TECHNIQUE: Frontal view of the chest. COMPARISON: None FINDINGS: LUNGS: Unremarkable. No consolidation. PLEURAL SPACE: Unremarkable. No pneumothorax. HEART: Unremarkable. No cardiomegaly. MEDIASTINUM: Unremarkable. BONES/JOINTS: Unremarkable. IMPRESSION: No acute cardiopulmonary disease demonstrated. RPTAT: [facility] Edward Ramos Physician Supervisor [employer] Date Time Electronically viewed and signed by Edward Ramos Physician Supervisor [employer] on 09/18/2018 20:59 RmC/ CC: KENIA ANAYA MD [id number] KERRY PRESTON Sep 18, 2018 23:15
[2018-09-18] MEDS ORDERED: NACL 0.9% 3 ML SYG IV SCH (23:30)
[2018-09-18] MEDS ORDERED: HYDROCODONE/APAP (5/325) TAB PO PRN (23:30)
[2018-09-18] MEDS ORDERED: DOCUSATE SODIUM 100 MG CAP PO PRN (23:30)
[2018-09-18] MEDS ORDERED: ONDANSETRON 4 MG INJ IV PRN (23:30)
[2018-09-18] MEDS ORDERED: VANCOMYCIN IV PER PHARMACY XX SCH (23:30)
[2018-09-18] MEDS ORDERED: BISACODYL (EC) 5 MG TAB PO PRN (23:30)
[2018-09-19] VITALS (7 sets, daily range): BP systolic 100–127; BP diastolic 57–77; PULSE 68–84; RESP 16–18
[2018-09-19] MEDS ORDERED: VANCOMYCIN 750 MG (PMX) 250 ML IVPB SCH (01:00)
[2018-09-19] MEDS: PIPER-TAZO 3.375 GM IV (PMX) 100 ML IVPB SCH ×5 (01:03→23:21)
[2018-09-19] MEDS ORDERED: METOPROLOL 50 MG TAB PO PRN (09:30)
--- NOTE | 2018-09-19 09:31 | RADRPT ---
Echocardiogram Report Patient Name: LEIF MORTENSENPatient ID: [id number] : 1980 (38y 6m)Study Date: 09/19/2018 7:47:35 AM Gender: MAccession #: [id number] Tech: Talha Guy RDCS Location: 520 Ref.Physician: KERRY PRESTON Height(Cm): BSA: Weight(Kg): Quality: AdequateOrder Physician: KERRY PRESTON Account #: Procedures: Echocardiographic Report: Transthoracic echocardiogram with complete 2D, M-Mode, and doppler examination. Indications: Abnormal EKG. Measurements: 2D/M Mode Doppler Measurement Value Normal Range Measurement Value Normal Range LVIDd 2D 4.8 [ 4.2 - 5.8 ] cm AV Peak [place] 1.1 [ 100.0 - 170.0 ] cm/sec LVIDs 2D 3.2 [ 2.5 - 4.0 ] cm AV Peak PG 5.0 [ 2.0 - 9.0 ] mmHg LVPWd 2D 1.0 [ 0.6 - 1.0 ] cm LVOT Peak [place] 0.9 [ 70.0 - 110.0 ] cm/sec IVSd 2D 0.8 [ 0.6 - 1.0 ] cm LVOT Peak PG 3.0 [ 2.0 - 6.0 ] mmHg AoR Diam 2D 2.9 [ 2.6 - 3.4 ] cm MV E Peak [place] 0.8 [ 60.0 - 130.0 ] cm/sec EDV 2D 108.0 [ 62.0 - 150.0 ] ml MV A Peak [place] 0.4 [ 100.0 - 120.0 ] cm/sec ESV 2D 39.4 [ 21.0 - 61.0 ] ml MV E/A 1.9 [ 0.8 - 1.5 ] ratio EF 2D 63.5 [ 52.0 - 72.0 ] percent MV Decel Time 180 [ 104 - 258 ] msec LA Dimen 2D 3.3 [ 3.0 - 4.0 ] cm Lat E` [place] 0.1 [ 10.0 - 15.0 ] cm/sec Lateral E/E` 5.7 [ 1.0 - 2.0 ] ratio MV E/A 1.9 [ 0.8 - 1.5 ] ratio TR Peak [place] 3.0 [ 100.0 - 280.0 ] cm/sec TR Peak PG 35.0 mmHg RVSP 38.0 [ 10.0 - 36.0 ] mmHg RA Pressure 3.0 mmHg Findings: Left Ventricle: Normal left ventricular systolic function. Normal left ventricular cavity size. Normal left ventricular wall thickness. Ejection fraction is visually estimated at 55 %. Tissue Doppler/Mitral Doppler indices are within normal limits. Right Ventricle: Normal right ventricular size. Normal right ventricular systolic function. Left Atrium: The left atrium is normal in size. Right Atrium: The right atrium is normal in size. Mitral Valve: Normal appearance and function of the mitral valve with trace physiologic regurgitation. Aortic Valve: Normal appearance of the aortic valve. No significant aortic stenosis or insufficiency. Tricuspid Valve: Normal appearance of the tricuspid valve. The estimated Peak RVSP is 38 mmHg. There is trace tricuspid regurgitation. Pulmonic Valve: Normal pulmonic valve appearance. Pericardium: Normal pericardium with no significant pericardial effusion. Aorta: Normal aortic root. IVC: Normal size and normal respiratory collapse consistent with normal right atrial pressure. Conclusions: Normal left ventricular systolic function. Normal left ventricular cavity size. Normal left ventricular wall thickness. Ejection fraction is visually estimated at 55 %. Tissue Doppler/Mitral Doppler indices are within normal limits. No significant valvular stenosis or regurgitation seen. The estimated Peak RVSP is 38 mmHg. Normal size and normal respiratory collapse consistent with normal right atrial pressure. Electronically Signed By: Tobias Butler 2018-09-19 09:30:09 PDT
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
[2018-09-19] MEDS: ACETAMINOPHEN 325 MG TAB PO PRN (11:55)
--- NOTE | 2018-09-19 12:01 | PN ---
Date/Time of Note Date/Time of Note DATE: 09/19/18 TIME: 11:59 Assessment/Plan VTE Prophylaxis Risk score (from Nsg)>0 risk: 1 SCD applied (from Nsg): Yes Pharmacological prophylaxis: NA/contraindicated Pharm contraindication: low risk/ambulating Lines/Catheters [facility] Per[facility] IV Assessment/Plan Hospital Course SUBJECTIVE: Having on and off fevers. OBJECTIVE: Vital signs-see below PHYSICAL EXAM: Constitutional: Adequately built,not in acute distress. HEENT: Head atraumatic and normocephalic. Eyes: Extraocular muscles intact. Anicteric sclerae. Pupils equal bilaterally, reactive to light. NECK: Supple without lymph node. CHEST: Clear and good breath sounds equally. No wheezing. No rhonchi. HEART: S1, S2. Regular rate and rhythm. ABDOMEN: Soft/non tender with no rebound tenderness. Bowel sounds were present. EXTREMITIES: No cyanosis, clubbing or edema. NEUROLOGIC: Alert and oriented x3. No focal deficit. No sensory deficit. PSYCHOSOCIAL: No signs of depression. INTEGUMENTARY: No open wounds. ASSESSMENT AND PLAN:38 yo M w/mp pnh here w/3 wks duration of fevers/cough/low backpain found to be in sepsis w/pneumonia Sepsis Source: Pneumonia -Continue empiric antimicrobials -Follow cultures. Community-acquired pneumonia -Continue antimicrobials. Try obtaining a sputum culture if possible. Abnormal EKG -Appreciate cardiology input. Plan is a CTA coronary angiography. Obesity with a BMI 30.4 -Weight reduction advised. DVT prophylaxis: SCDs Disposition: Continue current management. DC planning when clinically stable. Patient was seen in collaboration with Dr. Saucedo. Result Diagram: 09/19/18 0639 09/19/18 0639 Results 24hrs Laboratory Tests Test 09/18/18 20:16 09/18/18 20:20 09/18/18 23:33 09/19/18 01:14 POC Venous Lactate 1.2 White Blood Count 8.6 Red Blood Count 4.91 Hemoglobin 14.2 Hematocrit 41.5 L Mean Corpuscular 84.5 Volume Mean Corpuscular 28.9 L Hemoglobin Mean Corpuscular 34.2 Hemoglobin Concent Red Cell 11.7 Distribution Width Platelet Count 256 Mean Platelet Volume 9.2 Immature 0.400 Granulocytes % Neutrophils % 69.5 Lymphocytes % 19.9 Monocytes % 9.3 Eosinophils % 0.7 Basophils % 0.2 Nucleated Red Blood 0.0 Cells % Immature 0.030 Granulocytes # Neutrophils # 6.0 Lymphocytes # 1.7 Monocytes # 0.8 Eosinophils # 0.1 Basophils # 0.0 Nucleated Red Blood 0.0 Cells # Erythrocyte 25 H Sedimentation Rate Prothrombin Time 13.6 Prothrombin Time 1.1 Ratio INR International 1.03 Normalized Ratio Activated 32.0 Partial Thromboplast Time Urine Color STRAW Urine Clarity CLEAR Urine pH 7.0 Urine Specific 1.006 [place] Urine Ketones NEGATIVE Urine Nitrite NEGATIVE Urine Bilirubin NEGATIVE Urine Urobilinogen NEGATIVE Urine Leukocyte NEGATIVE Esterase Urine Microscopic 7 H RBC Urine Microscopic 0 WBC Urine Hemoglobin 2+ H Urine Glucose NEGATIVE Urine Total Protein NEGATIVE Sodium Level 139 Potassium Level 4.0 Chloride Level 101 Carbon Dioxide Level 28 Anion Gap 10 Blood Urea Nitrogen 12 Creatinine 0.95 Est Glomerular > 60 Filtrat Rate mL/min Glucose Level 99 Calcium Level 9.4 Total Bilirubin 1.2 Direct Bilirubin 0.00 Indirect Bilirubin 1.2 H Aspartate Amino 20 Transf (AST/SGOT) Alanine 15 Aminotransferase (AL T/SGPT) Alkaline Phosphatase 65 Creatine Kinase 81 64 Creatine Kinase 0.3 0.3 Index Creatinine Kinase MB < 0.22 < 0.22 (Mass) Troponin I < 0.012 < 0.012 C-Reactive Protein 4.1 H Total Protein 8.8 H Albumin 4.7 Globulin 4.10 H Albumin/Globulin 1.14 Ratio Test 09/19/18 06:39 White Blood Count 7.1 Red Blood Count 4.58 L Hemoglobin 13.0 L Hematocrit 38.1 L Mean Corpuscular 83.2 Volume Mean Corpuscular 28.4 L Hemoglobin Mean Corpuscular 34.1 Hemoglobin Concent Red Cell 12.0 Distribution Width Platelet Count 204 # Mean Platelet Volume 9.1 Immature 0.600 H Granulocytes % Neutrophils % 68.8 Lymphocytes % 17.5 Monocytes % 11.0 Eosinophils % 1.8 Basophils % 0.3 Nucleated Red Blood 0.0 Cells % Immature 0.040 H Granulocytes # Neutrophils # 4.9 Lymphocytes # 1.2 Monocytes # 0.8 Eosinophils # 0.1 Basophils # 0.0 Nucleated Red Blood 0.0 Cells # Sodium Level 144 Potassium Level 4.1 Chloride Level 109 Carbon Dioxide Level 24 Anion Gap 11 Blood Urea Nitrogen 10 Creatinine 0.82 Est Glomerular > 60 Filtrat Rate mL/min Glucose Level 108 Hemoglobin A1c 4.9 Calcium Level 8.5 Magnesium Level 2.0 Total Bilirubin 1.5 H Direct Bilirubin 0.00 Indirect Bilirubin 1.5 H Aspartate Amino 17 Transf (AST/SGOT) Alanine 18 Aminotransferase (AL T/SGPT) Alkaline Phosphatase 45 Creatine Kinase 65 Creatine Kinase 0.3 Index Creatinine Kinase MB < 0.22 (Mass) Troponin I < 0.012 Total Protein 6.6 # Albumin 3.5 # Globulin 3.10 Albumin/Globulin 1.12 Ratio Triglycerides Level 90 Cholesterol Level 117 LDL Cholesterol, 73 Calculated HDL Cholesterol 26 L Cholesterol/HDL 4.5 Ratio Thyroid Stimulating 2.030 Hormone (TSH) Exam/Review of Systems Exam Vitals Vital Signs Date Temp Pulse Resp B/P (MAP) Pulse Ox O2 O2 Flow FiO2 Time Delivery Rate 09/19/18 101.1 82 127/74 97 11:38 (91) 09/19/18 16 07:19 09/19/18 Room Air 04:24 Intake and Output 09/18/18 09/18/18 09/19/18 1515:00 23:00 07:00 IntakeIntake Total 450 ml BalanceBalance 450 ml Results Results 24hrs Laboratory Tests Test 09/18/18 20:16 09/18/18 20:20 09/18/18 23:33 09/19/18 01:14 POC Venous Lactate 1.2 White Blood Count 8.6 Red Blood Count 4.91 Hemoglobin 14.2 Hematocrit 41.5 L Mean Corpuscular 84.5 Volume Mean Corpuscular 28.9 L Hemoglobin Mean Corpuscular 34.2 Hemoglobin Concent Red Cell 11.7 Distribution Width Platelet Count 256 Mean Platelet Volume 9.2 Immature 0.400 Granulocytes % Neutrophils % 69.5 Lymphocytes % 19.9 Monocytes % 9.3 Eosinophils % 0.7 Basophils % 0.2 Nucleated Red Blood 0.0 Cells % Immature 0.030 Granulocytes # Neutrophils # 6.0 Lymphocytes # 1.7 Monocytes # 0.8 Eosinophils # 0.1 Basophils # 0.0 Nucleated Red Blood 0.0 Cells # Erythrocyte 25 H Sedimentation Rate Prothrombin Time 13.6 Prothrombin Time 1.1 Ratio INR International 1.03 Normalized Ratio Activated 32.0 Partial Thromboplast Time Urine Color STRAW Urine Clarity CLEAR Urine pH 7.0 Urine Specific 1.006 [place] Urine Ketones NEGATIVE Urine Nitrite NEGATIVE Urine Bilirubin NEGATIVE Urine Urobilinogen NEGATIVE Urine Leukocyte NEGATIVE Esterase Urine Microscopic 7 H RBC Urine Microscopic 0 WBC Urine Hemoglobin 2+ H Urine Glucose NEGATIVE Urine Total Protein NEGATIVE Sodium Level 139 Potassium Level 4.0 Chloride Level 101 Carbon Dioxide Level 28 Anion Gap 10 Blood Urea Nitrogen 12 Creatinine 0.95 Est Glomerular > 60 Filtrat Rate mL/min Glucose Level 99 Calcium Level 9.4 Total Bilirubin 1.2 Direct Bilirubin 0.00 Indirect Bilirubin 1.2 H Aspartate Amino 20 Transf (AST/SGOT) Alanine 15 Aminotransferase (AL T/SGPT) Alkaline Phosphatase 65 Creatine Kinase 81 64 Creatine Kinase 0.3 0.3 Index Creatinine Kinase MB < 0.22 < 0.22 (Mass) Troponin I < 0.012 < 0.012 C-Reactive Protein 4.1 H Total Protein 8.8 H Albumin 4.7 Globulin 4.10 H Albumin/Globulin 1.14 Ratio Test 09/19/18 06:39 White Blood Count 7.1 Red Blood Count 4.58 L Hemoglobin 13.0 L Hematocrit 38.1 L Mean Corpuscular 83.2 Volume Mean Corpuscular 28.4 L Hemoglobin Mean Corpuscular 34.1 Hemoglobin Concent Red Cell 12.0 Distribution Width Platelet Count 204 # Mean Platelet Volume 9.1 Immature 0.600 H Granulocytes % Neutrophils % 68.8 Lymphocytes % 17.5 Monocytes % 11.0 Eosinophils % 1.8 Basophils % 0.3 Nucleated Red Blood 0.0 Cells % Immature 0.040 H Granulocytes # Neutrophils # 4.9 Lymphocytes # 1.2 Monocytes # 0.8 Eosinophils # 0.1 Basophils # 0.0 Nucleated Red Blood 0.0 Cells # Sodium Level 144 Potassium Level 4.1 Chloride Level 109 Carbon Dioxide Level 24 Anion Gap 11 Blood Urea Nitrogen 10 Creatinine 0.82 Est Glomerular > 60 Filtrat Rate mL/min Glucose Level 108 Hemoglobin A1c 4.9 Calcium Level 8.5 Magnesium Level 2.0 Total Bilirubin 1.5 H Direct Bilirubin 0.00 Indirect Bilirubin 1.5 H Aspartate Amino 17 Transf (AST/SGOT) Alanine 18 Aminotransferase (AL T/SGPT) Alkaline Phosphatase 45 Creatine Kinase 65 Creatine Kinase 0.3 Index Creatinine Kinase MB < 0.22 (Mass) Troponin I < 0.012 Total Protein 6.6 # Albumin 3.5 # Globulin 3.10 Albumin/Globulin 1.12 Ratio Triglycerides Level 90 Cholesterol Level 117 LDL Cholesterol, 73 Calculated HDL Cholesterol 26 L Cholesterol/HDL 4.5 Ratio Thyroid Stimulating 2.030 Hormone (TSH) Medications Medication Current Medications IV Flush (NS 3 ml) 3 ml PER PROTOCOL IV ; Start 09/18/18 at 23:30 Ondansetron HCl (Zofran Inj) 4 mg Q6H PRN IV NAUSEA/VOMITING; Start 09/18/18 at 23:30 Acetaminophen (Tylenol Tab) 650 mg Q6H PRN PO .PAIN 1-3 OR TEMP; Start 09/18/18 at 23:30 Acetaminophen/ Hydrocodone Bitart ([place] (5/325)) 1 tab Q6H PRN PO .PAIN 4-6; Start 09/18/18 at 23:30 Docusate Sodium (Colace) 100 mg Q12H PRN PO .CONSTIPATION; Start 09/18/18 at 23:30 Bisacodyl (Dulcolax) 5 mg DAILY PRN PO .CONSTIPATION; Start 09/18/18 at 23:30 Piperacillin Sod/ Tazobactam Sod 100 ml @ 200 mls/hr Q6 IVPB Last administered on 09/19/18at 06:28; Admin Dose 200 MLS/HR; Start 09/19/18 at 00:00 Metoprolol Tartrate (Lopressor) 50 mg ONCE PRN PO prior to CT; Start 09/19/18 at 09:30; Stop 09/19/18 at 20:00 GAMALIEL LOGAN NP Sep 19, 2018 12:01
[2018-09-19] MEDS ORDERED: SOD CHLORIDE 0.9% 500 ML IV ONE (13:30)
[2018-09-19] MEDS ORDERED: METOPROLOL 5 MG INJ IV PRN ×2 (15:30)
[2018-09-19] MEDS ORDERED: METOPROLOL 50 MG TAB PO ONE (15:30)
[2018-09-19] MEDS ORDERED: IBUPROFEN 400 MG TAB PO PRN (16:30)
[2018-09-19] MEDS: IPRATROPIUM (NEB) 0.5 MG/2.5 ML AMP HHN SCH (20:41)
[2018-09-20] VITALS (7 sets, daily range): BP systolic 101–113; BP diastolic 55–71; PULSE 7–87; RESP 16–18
[2018-09-20] MEDS: IPRATROPIUM (NEB) 0.5 MG/2.5 ML AMP HHN SCH ×4 (01:41→19:51)
[2018-09-20] MEDS: PIPER-TAZO 3.375 GM IV (PMX) 100 ML IVPB SCH ×2 (05:46→13:58)
[2018-09-20] MEDS: ACETAMINOPHEN 325 MG TAB PO PRN ×2 (08:59→18:18)
[2018-09-20] MEDS ORDERED: METOPROLOL 100 MG TAB PO ONE ×2 (09:00→16:30)
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
[2018-09-20] MEDS ORDERED: METOPROLOL 5 MG INJ IV PRN (16:30)
[2018-09-20] MEDS: AZITHROMYCIN 250 MG TAB PO SCH (18:17)
[2018-09-20] MEDS: CEFTRIAXONE 1 GM/NS 50 ML IVPB SCH (18:17)
[2018-09-21] MEDS: IPRATROPIUM (NEB) 0.5 MG/2.5 ML AMP HHN SCH ×4 (01:57→20:09)
[2018-09-21 03:57] VITALS: BP 108/56; PULSE 80; RESP 18
[2018-09-21] MEDS: ACETAMINOPHEN 325 MG TAB PO PRN (04:09)
[2018-09-21] MEDS: GUAIFENESIN/DM 5ML CUP PO PRN (04:09)
[2018-09-21] MEDS ORDERED: METOPROLOL 100 MG TAB PO ONE (07:30)
[2018-09-21 07:39] VITALS: BP 102/62; PULSE 66; RESP 16
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
[2018-09-21] MEDS ORDERED: SOD CHLORIDE 0.9% 500 ML IV ONE (11:00)
[2018-09-21 11:29] VITALS: BP 115/78; PULSE 77; RESP 18
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
[2018-09-21] MEDS ORDERED: METOPROLOL 5 MG INJ IV PRN (12:30)
[2018-09-21] MEDS ORDERED: IOHEXOL 100 ML ONE (12:43)
[2018-09-21] MEDS ORDERED: SOD CHLORIDE 0.9% 100 ML ONE (12:43)
[2018-09-21] MEDS ORDERED: METOPROLOL 5 MG INJ ONE (12:46)
[2018-09-21 15:47] VITALS: BP 118/69; PULSE 77; RESP 18
[2018-09-21] MEDS: AZITHROMYCIN 250 MG TAB PO SCH (18:10)
[2018-09-21] MEDS: CEFTRIAXONE 1 GM/NS 50 ML IVPB SCH (18:10)
[2018-09-21 20:00] VITALS: BP 115/60; PULSE 70; RESP 18
[2018-09-22] VITALS: BP 130/76; PULSE 71; RESP 18
[2018-09-22] MEDS: IPRATROPIUM (NEB) 0.5 MG/2.5 ML AMP HHN SCH ×2 (02:05→08:43)
[2018-09-22] MEDS: GUAIFENESIN/DM 5ML CUP PO PRN (02:13)
[2018-09-22 04:00] VITALS: BP 98/57; PULSE 64; RESP 18
[2018-09-22 07:09] VITALS: BP 102/59; PULSE 66; RESP 16
--- NOTE | 2018-09-22 09:59 | PDOCDIS ---
Discharge Instructions CONDITION [id number] Patient Condition: [id number] Stable HOME CARE INSTRUCTIONS: [id number] Diet Instructions: [id number] Regular FOLLOW UP/APPOINTMENTS Follow-up Plan Follow-up with primary care physician in 1 week GAMALIEL LOGAN NP Sep 22, 2018 09:59
[2018-09-22] MEDS ORDERED: AZIT500T5 PO (10:07)
[2018-09-22] MEDS ORDERED: AMOX1TAB10 PO (10:07)
--- NOTE | 2018-09-22 10:11 | DS ---
Date/Time of Note Date/Time of Note DATE: 09/22/18 TIME: 10:09 Discharge Summary Admission/Discharge Info Admit Date/Time Sep 18, 2018 at 23:12 Discharge Date/Time Discharge Diagnosis S/P Sepsis 2/2 pneumonia Community-acquired pneumonia Degenerative joint disease of lumbar spine Obesity with a BMI 30.4 Patient Condition: Stable Consults Procedures 09/18/2018: CTA Coronary IMPRESSION: 1. Normal coronary CT angiogram. 2. Dense right lower lobe pneumonia. 3. Tiny layering pleural effusions. 4. Adjacent reactive adenopathy. Hospital Course 38 yo M w/mp pnh here w/3 wks duration of fevers/cough/low backpain found to be in sepsis w/pneumonia. Patient was empirically treated over 48 hours with de-escalation to ceftriaxone and azithromycin. Patient did show clinical improvement. Sepsis resolved. Patient hospitalization was also notable for abnormal EKG with small inferior Q waves with mild ST depressions, isolated ST elevation aVL and V2. Patient's troponins were negative. He did not have any chest pain. Patient was seen by wet end helper. Patient echocardiogram normal. He underwent a coronary angiography which was a normal study. No further cardiac work-up needed. At this time, patient remains afebrile over 48 hours. He did not have any respiratory symptoms. Patient is medically stable for discharge with outpatient follow-up. He was given prescription for Augmentin and azithromycin for course completion. Approximately 60-minute was spent in coordinating the discharge on this patient. Patient was seen in collaboration with Dr. Saucedo. Home Meds Active Scripts Amoxicillin/Potassium Clav (Amox-Clav 875-125 mg Tablet) 875-125 mg Tab, 1 TAB PO BID for 10 Days, #20 TAB Prov:LOGANGAMALIEL V. [employer] MACHINE FEEDER 09/22/18 Azithromycin* (Azithromycin*) 500 Mg Tablet, 500 MG PO DAILY for 3 Days, #3 TAB Prov:LOGANGAMALIEL V. M[employer]ING MACHINE FEEDER 09/22/18 Ibuprofen* (Motrin*) 600 Mg Tab, 600 MG PO Q6, #20 TAB Prov:CAROLINE ROSE PA-C 10/10/15 Discontinued Scripts Naproxen* (Naprosyn*) 500 Mg Tablet, 500 MG PO BID PRN for PAIN AND/OR INFLAMMATION, #30 TAB Prov:JARRED BEE PA-C 11/28/16 Acetaminophen with Codeine (Acetaminophen-Cod #3 Tablet) 1 Each Tablet, 1 TAB PO Q6H PRN for PAIN, #20 TAB Prov:BEEJARRED PA-C 11/28/16 Cephalexin* (Keflex*) 500 Mg Capsule, 500 MG PO QID for 7 Days, CAP Prov:CAROLINE ROSE PA-C 10/10/15 Sulfamethoxazole-Trimethoprim* (Bactrim* DS) 800-160 Mg Tab, 1 TAB PO BID for 7 Days, TAB Prov:ANAIS RAZO PA-C 09/10/15 Cephalexin* (Cephalexin*) 500 Mg Capsule, 500 MG PO Q6 for 10 Days, CAP Prov:ANAIS RAZO PA-C 09/10/15 Follow-up Plan Follow-up with primary care physician in 1 week Primary Care Provider Care Physician No Primary Pending Labs Laboratory Tests Test 09/22/18 06:05 White Blood Count 5.2 10^3/ul (4.8-10.8) Red Blood Count 5.00 10^6/ul (4.70-6.10) Hemoglobin 14.2 g/dl (14.0-18.0) Hematocrit 41.7 % (42.0-52.0) Mean Corpuscular Volume 83.4 fl (82.0-101.0) Mean Corpuscular Hemoglobin 28.4 pg (29.0-33.0) Mean Corpuscular Hemoglobin Concent 34.1 g/dl (32.0-37.0) Red Cell Distribution Width 11.6 % (11.5-14.5) Platelet Count 274 10^3/UL (140-415) Mean Platelet Volume 8.9 fl (7.4-10.4) Immature Granulocytes % 0.800 % (0.001-0.429) Neutrophils % 52.4 % (39.0-77.0) Lymphocytes % 33.2 % (15.0-51.0) Monocytes % 8.4 % (0.0-11.0) Eosinophils % 4.6 % (0.0-7.0) Basophils % 0.6 % (0.0-2.0) Nucleated Red Blood Cells % 0.0 /100WBC (0.0-0.0) Immature Granulocytes # 0.040 10^3/ul (0.0-0.031) Neutrophils # 2.7 10^3/ul (1.6-7.5) Lymphocytes # 1.7 10^3/ul (0.8-2.9) Monocytes # 0.4 10^3/ul (0.3-0.9) Eosinophils # 0.2 10^3/ul (0.0-0.5) Basophils # 0.0 10^3/ul (0.0-0.1) Nucleated Red Blood Cells # 0.0 10^3/ul (0.0-0.0) Sodium Level 144 mmol/L (135-144) Potassium Level 4.3 mmol/L (3.5-5.1) Chloride Level 102 mmol/L (97-110) Carbon Dioxide Level 29 mmol/L (21-31) Anion Gap 13 (5-13) Blood Urea Nitrogen 14 mg/dl (7-20) Creatinine 0.84 mg/dl (0.61-1.24) Est Glomerular Filtrat Rate mL/min > 60 mL/min (>60) Glucose Level 108 mg/dl (70-220) Calcium Level 9.5 mg/dl (8.4-10.2) Total Bilirubin 0.8 mg/dl (0.2-1.3) Direct Bilirubin 0.00 mg/dl (0.00-0.20) Indirect Bilirubin 0.8 mg/dl (0-1.1) Aspartate Amino Transf (AST/SGOT) 27 IU/L (15-46) Alanine Aminotransferase (ALT/SGPT) 25 IU/L (13-69) Alkaline Phosphatase 56 IU/L (42-121) Total Protein 8.5 g/dl (6.1-8.1) Albumin 4.5 g/dl (3.3-4.9) Globulin 4.00 g/dl (1.3-3.2) Albumin/Globulin Ratio 1.12 GAMALIEL LOGAN V. [employer] MACHINE FEEDER Sep 22, 2018 10:11
[2018-09-22] MEDS ORDERED: MEDICAL NOTE (10:20)
== END 2018-09-22 11:35 | disposition home or self-care (01) | DRG 871 ==
LOC: E/R 19:48 → TEL 23:12
PROVIDERS: ADMIT Family Medicine; ATTEND Family Medicine
DX: A41.9 Sepsis, unspecified organism (principal); J18.9 Pneumonia, unspecified organism; E66.9 Obesity, unspecified; Z68.30 Body mass index [BMI] 30.0-30.9, adult; M47.816 Spondylosis without myelopathy or radiculopathy, lumbar region; R94.31 Abnormal electrocardiogram [ECG] [EKG]
CPT/HCPCS: 36415; 71045; 72100; 74177; 75574; 80053; 80061; 81001; 82550; 82553; 83036; 83605; 83735; 84443; 84484; 85025; 85610; 85651; 85730; 86140; 86704; 86709; 86803; 87086; 87340; 93005; 93306; 94640; 94664; 96374; 96375; J0692; J0696; J2543; J3370; J7030; J7040; Q9967